=== PATIENT | male | born 1940 | race Caucasian/White ===

== ENCOUNTER 2017-10-09 09:20 | Inpatient (IN) ==
[2017-10-09] MEDS ORDERED: ASPIRIN 81 MG CHEWABLE TABLET PO ONE (09:34)
[2017-10-09] MEDS ORDERED: SALINE FLUSH 10ml SYRINGE IVF PRN (09:34)
[2017-10-09] MEDS ORDERED: NITROGLYCERIN 0.4 MG SUBLINGUAL TABLET SL PRN (09:34)
--- NOTE | 2017-10-09 11:23 | XRay Report ---
INDICATION: dyspnea PROCEDURE: CHEST 2-VIEWS UPRIGHT (PA & LAT) Encounter: Initial COMPARISON: Renal CT dated October 09, 2006 FINDINGS: There are some linear markings seen in the posterior lower lobes on the lateral view. Upper lung hercules are clear. There is no pleural effusion or pneumothorax. The cardiac silhouette is mildly enlarged. The mediastinal contours and pulmonary vascularity are within normal limits. DISH and mild degenerative change in the thoracic spine. IMPRESSION: Linear lower lobe markings could represent atelectasis, scarring or early infiltrate. Mild enlargement of the cardiac silhouette could be due to cardiomegaly or pericardial effusion. .
[2017-10-09] MEDS ORDERED: SALINE FLUSH 10ml SYRINGE ONE ×2 (11:34→15:14)
[2017-10-09] MEDS ORDERED: IOHEXOL 350mg/ml 75ml INJECTION ONE (11:34)
--- NOTE | 2017-10-09 12:21 | CT Scan Report ---
Indication: dyspnea PROCEDURE: CT angio pulm emboli: Encounter: Initial Comparison: Chest x-ray from today Technique: Axial CT pulmonary angiographic phase images were performed through the chest after the administration of intravenous contrast. Coronal and Sagittal MIP reconstructed images were created and reviewed. Automated Exposure Control and Iterative Reconstruction dose reducing techniques were utilized. Contrast: Omnipaque 350 74 mL Findings: Pulmonary arteries: Exam is diagnostic to the subsegmental pulmonary arterial level. No filling defects identified to suggest a pulmonary embolus. Other findings: Linear areas of scarring in the lower lobes with right-sided pleural thickening. No acute consolidative pneumonia. No pneumothorax or pleural effusion. The central airways are patent. No axillary or mediastinal adenopathy. Heart is mildly enlarged without pericardial effusion. The upper abdomen shows granulomatous disease in the spleen. The gallbladder is markedly distended with wall thickening and surrounding inflammation, incompletely evaluated on this exam. Impression: 1. No pulmonary embolus. No pneumonia or pericardial effusion. 2. Probable acute cholecystitis. Recommend gallbladder ultrasound for further evaluation. .
--- NOTE | 2017-10-09 12:50 | Emergency Department Report ---
General Adult HPI - General Chief complaint: Chest Pain Stated complaint: CP, stragulated hernia Time Seen by Provider: 10/09/17 09:35 - History of Present Illness HPI narrative: 76-year-old gentleman presents to ED with shortness of breath and abdominal distention. He initially was trying to track down the general surgeon to have a hernia repair, but was referred to the emergency department for evaluation when he reported to the desk that he felt short of breath. He has noticed some increasing shortness of breath over the last few months. However his main complaint today is that his abdomen feels full he feels like he's not had a bowel movement for at least 5 days and his left sided inguinal hernia is "may be incarcerated". He's had no fever has had some slight chills last 2 days. Increasing nausea with vomiting times one. He said it is rare, maybe vomited 3 times in his entire life. He has been taking laxatives the last 2-3 days, has not noticed any success. No chest pain. He has not seen a physician in 7-10 years. In fact the last time he saw , it was Dr. Kumar to have a hernia repair. - Related Data Home Medications Medication Instructions Recorded Confirmed No known Home medications [No home 10/09/17 10/09/17 meds] Allergies Allergy/AdvReac Type Severity Reaction Status Date / Time NKDA Allergy Unknown Uncoded 05/19/10 15:15 Review of Systems All systems: reviewed and negative except as stated PFSH Patient Stated Medical History Angina Yes Asthma Yes Other Respiratory Yes: CHRONIC COUGH Other Hematologic Yes: EASY BRUISING - Social History Smoking status: Never smoker Physical Exam - Limitations Limitations: no limitations - General General appearance: alert - Normal Exams: Head:: Normocephalic without trauma Chest/Respirations:: Clear all hercules, with good airflow, and symmetry bilaterally Cardiovascular:: Regular rate and rhythm, without murmur or gallop, Pulses 2+ all extremities, capillary refill, <2 seconds all extremities Abdomen:: Bowel sounds positive Neurological:: Patient is alert, and oriented, cranial nerves, motor/sensory/ cerebellar, exams w/o gross deficits, to observation Psychiatric:: Patient exhibits, appropriate attention, emotion and affect - Abdominal Exam Abdominal exam: Present: distention, tenderness (right upper quadrant), normal bowel sounds. Absent: guarding, rebound, rigidity Course Vital Signs Temperature 98.7 F 10/09/17 09:22 Pulse Rate 94 10/09/17 09:22 Respiratory Rate 24 10/09/17 09:22 Blood Pressure 117/56 10/09/17 09:22 Pulse Oximetry 97 10/09/17 09:22 Temperature 98.7 F 10/09/17 09:22 Pulse Rate 94 10/09/17 09:22 Respiratory Rate 24 10/09/17 09:22 Blood Pressure 117/56 10/09/17 09:22 Pulse Oximetry 97 10/09/17 09:22 Medical Decision Making - MDM Narrative Medical decision making narrative: Patient was initially evaluated as a possible preop for hernia repair. However due to the shortness of breath, he was Worked up as possible chest pain. Cardiac labs, chest x-ray ordered as well as aspirin and nitroglycerin. Troponin was negative but patient did have elevated white count with left shift. Questionable pericardial effusion or cardiac enlargement on chest x-ray. CT angiogram was obtained to rule out the possibility of pneumonia or pericardial effusion and likely acute cholecystitis was noted incidentally on the CT scan. This certainly fit with the patient's symptoms and complaints. Therefore liver enzymes, lipase and limited abdominal ultrasound are ordered. Enlarged gallbladder with.periCholecystic fluid noted and gallstones seen. Invanz 1 g IV ordered along with 500 ML normal saline bolus. Patient will be admitted via surgery. - Differential Diagnosis pericardial effusion, pneumonia, inguinal hernia, cholecystitis - Lab Data Result diagrams: 10/09/17 09:39 10/09/17 09:39 Lab Results 10/09/17 10/09/17 Range/Units 09:39 09:39 WBC 19.7 H (4.5-11.0) T/MM3 RBC 4.04 L (4.50-5.90) M/MM3 Hgb 13.3 L (13.5-17.5) GM/DL Hct 38.8 L (41-53) % MCV 96.0 (80-100) UM3 MCH 32.9 (26-34) UUG MCHC 34.3 (31-37) GM/DL RDW Std Deviation 44.0 (36.9-50.2) FL Plt Count 318 (130-400) T/MM3 MPV 9.9 (9.4-12.4) UM3 Immature Gran % (Auto) Not performed Neut % (Auto) Not performed Lymph % (Auto) Not performed [place] % (Auto) Not performed Eos % (Auto) Not performed Baso % (Auto) Not performed Neut # (Auto) Not performed Lymph # (Auto) Not performed [place] # (Auto) Not performed Eos # (Auto) Not performed Baso # (Auto) Not performed Abs Immat Gran (auto) Not performed Neutrophils % (Manual) 87.0 H (33-66) % Band Neutrophils % 2.0 (0-6) % Lymphocytes % (Manual) 6.0 L (23-45) % Monocytes % (Manual) 2.0 (0-9.0) % Metamyelocytes % 3.0 H (0-0) % Neutrophils # (Manual) 17.1 H (1.8-7.7) T/MM3 Band Neutrophils # 0.4 T/MM3 Lymphocytes # (Manual) 1.2 (1-4.8) T/MM3 Monocytes # (Manual) 0.4 (0-0.8) T/MM3 Metamyelocytes # 0.6 T/MM3 RBC Morph Comment Normal Turbidity < 20 (0-20) Sodium 140 (134-144) MEQ/L Potassium 3.9 (3.6-5) MEQ/L Chloride 104 (98-107) MEQ/L Carbon Dioxide 21 L (22-30) MEQ/L Anion Gap 15 (5-15) meq/L BUN 14.0 (9-20) MG/DL Creatinine 0.8 (0.8-1.5) mg/dL GFR Calculation 94 BUN/Creatinine Ratio 18 (6-26) RATIO Glucose 144 H (75-110) MG/DL Calculated Osmolality 273 (261-280) MOSM/KG Calcium 9.7 (8.4-10.2) MG/DL Icterus Index < 2 (0-7) Troponin I < 0.012 (0-0.12) ng/ml NT-Pro-B Natriuret Pep 1950 H (0-175) pg/mL Specimen Hemolysis 17 (0-25) - Radiology Data Radiology results reviewed: Yes: I reviewed the patient's radiology results. - EKG Data EKG #1 EKG attestation: Yes: I reviewed and interpreted this EKG. EKG results narrative: 99 bpm EKG shows normal: sinus rhythm Rhythm: PVC's Interpretation: nonspecific ST-T wave changes Disposition Clinical Impression: Acute cholecystitis Disposition: 02 To OBS [facility] Prescriptions: No Action No known Home medications [No home meds] 0 #0 misc Referrals: Jerel Hernández DO [Primary Care Provider] - Time of Disposition: 12:56 - Seen By: physician
[2017-10-09] MEDS ORDERED: ERTAPENEM 1 G in NS 100 ML IV ONE (12:57)
--- NOTE | 2017-10-09 13:12 | Ultrasound Report ---
Indication: abd pain PROCEDURE: US abdomen limited: Encounter: Initial Comparison: CTA chest from today Technique: Grayscale and color Doppler sonographic imaging of the right upper quadrant of the abdomen was performed. Findings: Hepatic parenchyma is echogenic and sonographically dense without evidence for focal mass. The gallbladder is distended with a 1.9 cm gallstone fixed in the neck. Additional smaller stones also present. There is gallbladder wall edema and thickening up to 7 mm in thickness. Sonographic Roche's sign was reportedly positive. No intrahepatic bile duct dilatation. The common duct was unable to be visualized. Pancreas is not seen. The right kidney is present without collecting system dilatation. The right kidney measures 13.2 cm in length. Impression: 1. Acute cholecystitis. Surgical consultation is recommended. 2. Hepatic steatosis. .
[2017-10-09] MEDS: NS 1,000 ML IV SCH ×2 (13:14→17:24)
--- NOTE | 2017-10-09 13:24 | General Surg History&Physical ---
[facility] Patient Stated Medical History Angina Yes Asthma Yes Other Respiratory Yes: CHRONIC COUGH Other Hematologic Yes: EASY BRUISING Obesity Melanoma 2018 Surgical History: Left inguinal hernia repair 2011 José Family History: Father - cancer "in the neck" Mother - Lymphoma Brother - Prostate and kidney cancer - Social History Smoking status: Never smoker Current occupational status: retired Previous occupational history: Office supply sales Current residence: Apartment/Private Home Social history: PCP Dr. Hernández, but has not seen him for many years. Medications Home Medications Medication Instructions Recorded Confirmed Type No known Home medications [No home 10/09/17 10/09/17 History meds] Allergies Allergy/AdvReac Type Severity Reaction Status Date / Time NKDA Allergy Unknown Uncoded 05/19/10 15:15 Review of Systems 10-point ROS: negative except for HPI and the following: - General General: Present: fever, chills, other (fatigue) - Eyes/Ears/Nose/Throat Ear Nose Throat: Present: hearing problems - Cardiovascular Cardiovascular: Present: chest pain (angina) - Respiratory Respiratory: Present: wheezing, cough - Gastrointestinal Gastrointestinal: Present: constipation - Musculoskeletal Musculoskeletal: Present: back pain, joint pain - Neurological Neurological: Present: muscle weakness - Hematologic/Lymphatic Hematologic/Lymphatic: Present: easy bruising - Vital Signs Last Vital Signs Temp 98.7 F 10/09/17 09:22 Pulse 94 10/09/17 09:22 Resp 24 10/09/17 09:22 BP 117/56 10/09/17 09:22 Pulse Ox 97 10/09/17 09:22 - Laboratory Result Diagrams: 10/09/17 09:39 10/09/17 09:39 General Surgery Results - Results Labs: 10/09/17 09:39 10/09/17 09:39 Hospital Course Summary Disclaimer: The visit summary below is not to be considered part of the above Progress Note.
[2017-10-09 13:44] VITALS: BMI 48.8
[2017-10-09] MEDS ORDERED: SALINE FLUSH 10ml SYRINGE IV PRN (14:06)
[2017-10-09] MEDS ORDERED: LIDOCAINE 1% (10mg/ml) 2mL INJ PF SDV ID ONE (14:06)
[2017-10-09] MEDS ORDERED: MORPHINE SULFATE 10mg/ml VIAL IVP PRN (14:06)
[2017-10-09] MEDS ORDERED: ONDANSETRON 4 MG/2 ML INJECTION IVP PRN ×2 (14:06→19:45)
--- NOTE | 2017-10-09 15:06 | Anesthesia Preoperative Report ---
Anesthesia Preoperative Record - Date and Time Date: 10/09/17 Preoperative Diagnosis: acute cholecystitis Proposed Procedure: Robotic Choleycystectomy NPO Since Date: 10/07/17 NPO Since Time: 20:00 Allergies/Adverse Reactions: Allergies Allergy/AdvReac Type Severity Reaction Status Date / Time NKDA Allergy Unknown Uncoded 10/09/17 13:47 - Vital Signs Vital Signs: Temperature 97.0 F 10/09/17 13:48 Pulse Rate 83 10/09/17 13:48 Respiratory Rate 20 10/09/17 13:48 Blood Pressure 138/65 10/09/17 13:48 Pulse Oximetry 97 10/09/17 13:48 Height and Weight: Height 5 ft 11 in Weight 158.8 kg Body Mass Index 48.8 - Medications Inpatient Medications: Current Medications Sodium Chloride (Normal Saline) 1,000 mls @ 125 mls/hr IV .Q8H SYLVIA Last Infusion: 10/09/17 13:22 Dose: 0 mls/hr Morphine Sulfate (Morphine Sulfate Vial) 1 - 4 mg IVP Q2H PRN PRN Reason: Pain Ondansetron HCl (Zofran) 4 mg IVP Q6H PRN PRN Reason: Nausea Sodium Chloride (Iv Flush) 10 ml IV PRN PRN PRN Reason: Flushing Home Medications: Home Medications Medication Instructions Recorded Confirmed Type No known Home medications [No home 10/09/17 10/09/17 History meds] Is Patient on Beta Sukhdev?: No - Medical History Respiratory: Reports: Asthma, Dyspnea, Sleep Apnea, Other (CHRONIC COUGH) DENIES: Bronchitis, Chronic Obstructive Pulmonary Disease (COPD), Orthopnea, Pulmonary Embolism, Pneumonia, Upper Respiratory Infection, Pulmonary Edema, Tuberculosis Cardiovascular: Reports: Angina DENIES: Abnormal EKG, Arrhythmia, Congestive Heart Failure, Coronary Artery Disease, Heart Murmur, Hypertension, Hypotension, High Cholesterol, Myocardial Infarction, Rheumatic Fever, Valvular Heart Disease, Other Gastrointestional: Reports: Gastroesophageal Reflux Disease, Morbid Obesity DENIES: Obstructive Bowel, Hepatitis, Cirrhosis, Nausea or Vomiting Present, Gastrointestinal Bleeding, Hiatal Hernia, Ulcer, Other Neuro/Musculoskeletal: Reports: Back Problems (LOWER BACK), Muscle Weakness Denies: Cerebrovascular Accident, Depression, Headaches, Loss of Consciousness, Neuromuscular Disorder, Paralysis, Paresthesia, Syncope, Seizures , Other Renal/Endocrine: DENIES: Diabetes Mellitus Type 1, Diabetes Mellitus Type 2, Renal Failure, Dialysis, Thyroid Disease, Weight Loss, Weight Gain, Other Other History: Reports: Cancer (MELANOMA REMOVED FROM LEFT EAR) - Surgical History Respiratory Surgery/Treatments: Reports: CPAP Use GI Surgery/Treatments: Reports: Hernia Repair Anesthesia Reactions: None Hx Family Anesthesia Reaction: No History of Motion Sickness: No - Social History Smoking Status: Never smoker Hx Chewing Tobacco Use: No Second Hand Exposure: No Substance Use Type: does not use Alcohol Intake Frequency: does not drink - Pertinent Findings EKG Ectopy: Bundle Branch Block - Physical Exam Respiratory Exam: Present: lungs clear, bilateral breath sounds equal Cardiovascular Exam: Present: regular rate and rhythm, no murmur - Airway Assessment Mallampati Score: II TMD: 3 Fingerbreadths Neck Extension: good Overall Assessment: may be difficult mask vent, may be difficult intubation - ASA ASA Score: 3 - Plan Anesthesia: General Inhalation Gases - Discussion Discussion: Discussed risks/options/alternatives of anesthesia and questions answered. Patient consents. Nursing pain assessment noted. Attestation Statement: Prior to the delivery of any anesthetic medication, I examined the patient, developed the plan, obtained the patient's consent and discussed the risk and benefits of the procedure with the patient/guardian.
[2017-10-09] MEDS ORDERED: INDOCYANINE GREEN 25mg INJECTION ONE (15:14)
[2017-10-09] MEDS ORDERED: ROCURONIUM 50 MG/5 ML INJECTION IVP ONE ×2 (16:02→17:54)
[2017-10-09] MEDS ORDERED: PROPOFOL 20 ML ONE (16:02)
[2017-10-09] MEDS ORDERED: SUCCINYLCHOLINE 20mg/mL 10mL INJECTION ONE (16:02)
[2017-10-09] MEDS ORDERED: SALINE FLUSH 10ml SYRINGE IV ONE (16:13)
[2017-10-09] MEDS ORDERED: BUPIVACAINE 0.25%/EPI 1:200,000 30ml SDV ID ONE (16:13)
[2017-10-09] MEDS ORDERED: INDOCYANINE GREEN 25mg INJECTION IVP PRN (16:13)
[2017-10-09] MEDS ORDERED: FentaNYL 250 MCG/5 ML INJECTION ONE (16:15)
[2017-10-09] MEDS ORDERED: BUPIVACAINE 0.25%/EPI 1:200,000 30ml SDV ONE (16:18)
[2017-10-09] MEDS ORDERED: LIDOCAINE VISCOUS 2% ORAL LIQUID 15ml ONE (16:44)
[2017-10-09] MEDS ORDERED: LIDOCAINE 2% (100mg/5ml) SYRINGE (PF) IVP ONE (16:45)
[2017-10-09] MEDS ORDERED: SUGAMMADEX 200mg/2ml INJECTION IVP ONE (19:12)
[2017-10-09] MEDS ORDERED: HYDROMORPHONE 2 MG/ML INJECTION IVP PRN (19:45)
--- NOTE | 2017-10-09 19:47 | General Surgery Procedure Note ---
Date of Procedure: 10/09/17 Surgeon: José Instrument Setter: Joseph Schaffer APRN Postoperative Diagnosis: Acute gangrenous cholecystitis cholelithiasis cholelithiasis Procedure: Robotic assisted laparoscopic cholecystectomy with Firefly imaging. Estimated Blood Loss: See Anesthesia Record.
--- NOTE | 2017-10-09 19:56 | Anesthesia Postoperative Note ---
- Date and Time Date: 10/09/17 Time: 19:55 - Status Patient Participated in Evaluation: Patient Participated in Person Vital Signs: Temperature 98.4 F 10/09/17 19:36 Pulse Rate 104 H 10/09/17 19:40 Respiratory Rate 34 H 10/09/17 19:40 Blood Pressure 130/67 10/09/17 19:40 Pulse Oximetry 94 10/09/17 19:40 Respiratory Function: Airway Patent (Bipap ), Regular Respirations Cardiovascular Function: Regular Pulse EKG: Sinus Rhythm Mental Status: Alert and Oriented Pain Intensity: 0 Hydration: IV Infusing Complications During Recover: None Apparent - Follow-Up Instructions Instructions: Per Surgeon
[2017-10-09] MEDS ORDERED: NS 1,000 ML IV SCH (20:26)
[2017-10-09] MEDS ORDERED: NALOXONE 0.4 MG/ML INJECTION IVP PRN (20:26)
[2017-10-09] MEDS ORDERED: METOCLOPRAMIDE 10mg/2ml INJECTION IVP PRN (20:26)
[2017-10-09] MEDS ORDERED: HYDROCODONE/APAP 5mg/325mg TABLET PO PRN (20:26)
[2017-10-09] MEDS: KETOROLAC 15 MG/ML INJECTION IVP PRN (20:33)
--- NOTE | 2017-10-09 20:50 | History and Physical ---
DATE OF SERVICE 10/09/2017 FINDINGS Mr. Sequeira is a 76-year-old gentleman whom I was asked to see earlier today through the emergency room. Upon questioning Mr. Sequeira, he states over the last five to six days he has "not been feeling well." Patient states that he has noted that there was a "lump" within his left groin for a number of years. He states he has been having some "problems with his bowels." Patient also stated that he has put on a significant amount of weight over the last couple of years and has chronic problems with shortness of breath. He has not seen a physician for about the last seven years. The patient also states that his "left kidney seems to hurt" although this is also a chronic issue for him. The patient was somewhat vague about his symptoms but did state that he has noted increasing pain within his epigastric region and right upper quadrant over the last several days. Patient states that he did have episode of vomiting which is quite unusual for him. The patient also states that he has noted that it has been about four or five days since he has had a bowel movement. As a result of this increasing pain and not feeling well he presented initially to my surgical practice and was "looking for me." The patient was seen by my nurse practitioner and with his complaints he was subsequently sent to the emergency room for further evaluation. PAST MEDICAL HISTORY, PAST SURGICAL HISTORY, MEDICATIONS, ALLERGIES, SOCIAL HISTORY, FAMILY HISTORY, REVIEW OF SYSTEMS Performed by my nurse practitioner, Joseph Schaffer APRN. PHYSICAL EXAMINATION GENERAL: Mr. Sequeira is a 76-year-old gentleman who did appear uncomfortable when seen earlier today in the emergency room. VITAL SIGNS: Temperature 97.9, pulse 92, respirations 20, blood pressure 92/48. HEENT: Normocephalic. Pupils are equally round and react to light and accommodation. CHEST: Clear to auscultation bilaterally. HEART: Regular rate and rhythm. Normal S1 and S2 without gallops, murmurs or clicks. ABDOMEN: Visualization of the abdomen did reveal it to be fairly protuberant in nature. Palpation of the abdomen did indeed reveal localized tenderness to his right upper quadrant. Patient did have a positive Roche sign. The patient also had some tenderness within the epigastric region but the site of maximum tenderness was indeed within the right subcostal location. He did have a component of voluntary guarding with deep palpation. There was no evidence for involuntary guarding, however, or rebound tenderness. Left lower quadrant, right lower quadrant and left upper quadrant were for the most part nontender upon palpation. Additionally, focused attention to the left inguinal region revealed a left inguinal hernia. The patient was found to have a 10-12 cm mass in the left inguinal region that appeared to contain bowel. This was soft and partially reducible in upon palpation. There was no severe tenderness noted within the left inguinal region upon palpation. EXTREMITIES: Without clubbing, cyanosis, or edema. NEURO: Cranial nerves II-XII grossly intact. Patient is without focal motor or sensory deficits. LABORATORY/RADIOGRAPHIC EVALUATION The patient had a CBC obtained that did reveal increased localized leukocytosis with a white count of 19,000. Hemoglobin is 13.3. Did have a slight left shift with 87% neutrophils. CMP was obtained and his total bilirubin was slightly elevated at 1.8 although his unconjugated was 1.2. Lipase was normal at 18. AST, ALT, alkaline phosphatase were within normal limits. Patient had undergone multiple testing through the emergency room, given his somewhat vague presentation. Chest x-ray was obtained that did not reveal any acute pathology. He did have a CTA of his chest to rule out a pulmonary embolism given his somewhat complaint of some shortness of breath. This did not reveal any evidence for pulmonary emboli but did reveal evidence for acute cholecystitis. The patient subsequently underwent a gallbladder ultrasound for further evaluation and he was found to have a 1.9-cm fixed stone within the neck of the gallbladder. There was a component pericholecystic fluid/edema. Gallbladder wall was thickened in nature. He was found have a positive Roche sign during the process of his ultrasound. I was present with the field map technician while he was performing the ultrasound. ASSESSMENT 76-year-old obese gentleman with acute cholecystitis. PLAN Robotic-assisted laparoscopic cholecystectomy. Given his physical findings and radiographic findings as well as his laboratory results all indicative for acute cholecystitis it was my recommendation to Mr. Sequeira that he should undergo surgical intervention. I did discuss in detail with him what a robotic- assisted laparoscopic cholecystectomy would entail and its associated risks which included but were not inclusive of bleeding, infection, potential conversion to an open procedure, as well as potential injury to adjacent structures especially the common bile duct. Additionally, it was my recommendation that we give the patient while in the emergency room broad- spectrum antibiotics. After informed consent the patient understood and wished to proceed with surgical intervention as stated above. MEGA
--- NOTE | 2017-10-09 21:22 | Consult Note ---
Consult Information - Data of Consult Consult date: 10/09/17 Requesting Physician: Jerrell Kumar MD Primary Care Provider: Jerel Hernández DO - Consult Narrative Reason for consult: Medical Management - in ICU History of present illness: Mr. Sequeira is a 76 y/o w/ reported h/o MARIO on CPAP, hernia repair in 2010, Asthma , GERD, chronic back pain and infrequent visits to his PCP who presented today w / vague complaints but did note acute epigastric and RUQ abdominal pain with episode of n/v and noted to have elevated Tbil of 1.8 and WBC of 19.7. Patient also in ER had a Chest x-ray was obtained that did not reveal any acute process and a CTA of his chest negative for PE but did show concern for acute cholecystitis. The patient subsequently underwent a gallbladder ultrasound for further evaluation and he was found to have a 1.9-cm fixed stone within the neck of the gallbladder. There was a component pericholecystic fluid/edema. Gallbladder wall was thickened in nature. He was found have a positive Roche sign during the process of his ultrasound. Patient was seen and evaluated by Dr. Kumar and was taken to OR and had lap cholecystectomy and had some respiratory issues post-op and frequent PVCs and is now in CCU on BIPAP. Cardiology is also going to be consulted as well. Hospitalist service will follow along and manage patient's medical issues At the time I visited with the patient he is feeling better, denies dyspnea and SOA at this time and is currently off BIPAP and on 5 L/min O2 per NC. He states he has no acute complaints. Past Medical History Medical History Updates: GERD, Asthma, chronic back pain, melanoma left ear s/p excision, hernia repair in 2010, h/o Angina? and MARIO on CPAP. Not a smoker. Surgical History: Left inguinal hernia repair 2010 [facility] Family History: No Significant Family History - Social History Smoking status: Never smoker Does patient use chewing tobacco?: No Review of Systems All systems PM: 10-point ROS was reviewed, no additional remarkable complaints except Review of systems: Patient states over past several years has had significant weight gain and rarely sees his PCP - last time was 6-7 years ago. Also recently has c/o some mild SOA w/ exertion and also constipation. Medications Home Medications Medication Instructions Recorded Confirmed Type Aspirin 2 tab PO PRN PRN 05/22/18 05/22/18 History Cetirizine HCl [Zyrtec] 1 tab PO DAILY 10/09/17 10/09/17 History Allergies Allergy/AdvReac Type Severity Reaction Status Date / Time NKDA Allergy Unknown Uncoded 10/09/17 15:42 Exam Vital Signs: Temperature 98.2 F 10/09/17 20:53 Pulse Rate 100 10/09/17 20:53 Respiratory Rate 28 H 10/09/17 20:53 Blood Pressure 105/50 10/09/17 20:53 Pulse Oximetry 96 10/09/17 20:53 Telemetry Rhythm: Sinus Rhythm Telemetry Ectopy: Occasional PVC - Constitutional Present: no acute distress, well nourished, well developed, cooperative - Routine HEENT Exam Head: Present: normocephalic, atraumatic Eye: Present: EOMI, PERRL ENT: Present: mucous membranes dry - Routine Neck Exam Present: supple, full ROM. Absent: JVD - Routine Respiratory Exam Present: decreased breath sounds. Absent: accessory muscle use, dyspnea, rhonchi, stridor, wheezes - Routine Cardiovascular Exam Present: RRR, S1, S2 - Routine Abdominal Exam Comments: + bowel sounds; mild ttp but otherwise relatively soft; protuberant; - Routine Extremities Exam Absent: cyanosis, clubbing, edema - Routine Skin Exam Present: intact, dry. Absent: cyanosis - Routine Neurological Exam Present: alert, oriented X3, CN II-XII intact. Absent: sensory deficit, motor deficit - Routine Psychiatric Exam Present: normal affect, normal thought process, cooperative Results - Labs CBC & Chem 7: 10/10/17 02:41 10/10/17 02:41 Assessment and Plan Assessment and Plan: Assessment 1) Acute cholecystitis s/p Cholecystectomy 2) Acute Hypoxic Respiratory Failure in ICU on BIPAP 3) Acute Sepsis 4) MARIO normally in CPAP at home 5) GERD 6) Telemetry showing frequent PVCs 7) Chronic back pain PLan: Appreciate consult and opportunity to care for Mr Sequeira Telemetry Serial troponins Cardiology consult - given 12.5mg po Metoprolol x one BIPAP - wean as tolerated to NC RT consult w/ nebs q 4 hours prn and ISP as tolerated IVFs that of NS at 125 cc / hour Labs in AM Protonix 40mg daily - start IV and move to po Vancomycin 1g IV x one, then reassess tomorrow for continued need Order lactate tonight and in AM Will monitor Is/Os Will continue to follow and manage medical issues. DVT Prophylaxis: SCD's GI Prophylaxis: Protonix Resuscitation Status: Full Code - Physician Narrative Physician: Elsa Roger MD Narrative: Date: 10/10/17 Time: 9 AM-Dr. Roger I seen and examined the patient. I have reviewed the H&P above and agree. Please see my additions below. Chief complaint: Medical management and ICU postoperatively History of present illness: The patient is very pleasant 76-year-old male who was found to have acute cholecystitis and underwent laparoscopic cholecystectomy yesterday. Surgery was somewhat difficult and 5 ports were used. He had been feeling poorly for almost a week with right upper quadrant pain and pain in the right lower chest. For 2 days he was having fevers, chills , sweats and some confusion. He has obstructive sleep apnea and uses CPAP at night. He does not use supplemental oxygen. We were consulted last evening for respiratory failure. The patient did need intermittent BiPAP/CPAP. He was up to 5 L per nasal cannula but currently is on 2 L. He states that this morning he feels much better. He has no abdominal pain unless he moves. He denies any chest pain. He states that prior to the past week he did not have any difficulties with chest pain. When he was having this epigastric/right upper quadrant/right sided chest pain this past week there was no radiation of pain to the upper chest, neck or arms. He has some chronic dyspnea on exertion but this was not any worse this past week. He was noticed to have frequent PVCs on telemetry. He does not notice any palpitations or heart racing. He denies any nausea or vomiting today. He has not had any flatus since surgery. He has not had a bowel movement for about 5 days and does feel constipated. Past medical history: GERD, asthma, occasional low back pain, knee pain, history of melanoma the left ear status post excision, left inguinal hernia [place] [address] Kumar, obstructive sleep apnea on CPAP, prostate procedure 10-12 years ago. He denies any hospitalizations in the past. Social history: He formerly smoked a pipe but quit 25 years ago. He denies alcohol use. He is and lives alone. He is retired. Family history significant for multiple family members with cancer. His mother of lymphoma at age 63. His dad had a tumor on his jaw that was treated successfully and his dad at age 90 of old age. He has a brother who had prostate cancer and kidney cancer. Multiple family members on his mother's side have of cancer. Comprehensive review of systems is negative other than the above in history of present illness Physical exam Afebrile, heart rate 84, blood pressure 117/64, O2 sat 93% on 2 L, respirations 23 General this is well-developed, overweight, pleasant male in no acute distress. HEENT reveals sclerae to be anicteric and pupils are equal. Oropharynx is moist. Neck supple. Chest is clear to auscultation anteriorly. Cardio vascular reveals a regular rate and rhythm with an occasional PVC. Abdomen is obese, soft, hypoactive bowel sounds. Mild tenderness. Overall he states his tenderness is markedly improved compared to yesterday. Extremities reveal trace edema. SCDs are on. Skin is warm and dry and without rashes. Pertinent labs reveals white count to be 18.4 down from 19.7. Neutrophils 85%, bands 2%. Hemoglobin A1c 5.6 Total bilirubin today is 1.9 up from 1.8 yesterday. Other liver enzymes are essentially normal. Lactate was normal 2. Troponin was normal 3. Impression Acute cholecystitis status post laparoscopic cholecystectomy Acute hypoxic respiratory failure History of obstructive sleep apnea which he uses CPAP Leukocytosis Frequent PVCs Right lower anterior chest pain was likely related to his acute cholecystitis and has resolved Low back pain Bilateral knee pain Constipation Plan Overall, the patient appears to be doing well post laparoscopic cholecystectomy. Continue on telemetry. Check magnesium regarding frequent PVCs. Consider echocardiogram. The patient is on ertapenem for acute cholecystitis. He was given vancomycin 1. At this time, I do not think this needs to be continued. Blood cultures have been drawn and are pending. Continue CPAP/BiPAP at night. Wean off oxygen as tolerated. Incentive spirometry. Recommend the patient establish with primary care after dismissal. Hospital Course Summary Disclaimer: The visit summary below is not to be considered part of the above Progress Note.
[2017-10-10] MEDS: NS 1,000 ML IV SCH ×3 (01:51→18:05)
[2017-10-10] MEDS ORDERED: Bisacodyl EC TAB 5 MG TABLET PO ONE (07:51)
--- NOTE | 2017-10-10 07:54 | General Surgery Progress Note ---
Subjective Narrative: Slept between cares during the night. States having right and left mid abd pain with activity. He is reluctant to get up or turn/reposition. Denies chest pain this morning. He was on B-Pap all night. States no BM for 5 days and not passing flatus. Hospitalist and manager analytical have been consulted last evening. - Vital Signs Last Vital Signs Temp 98.2 F 10/09/17 20:53 Pulse 79 10/10/17 04:45 Resp 25 H 10/10/17 04:45 BP 113/68 10/10/17 04:45 Pulse Ox 94 10/10/17 04:45 - Laboratory Result Diagrams: 10/10/17 02:41 10/10/17 02:41 - Abnormal Exam Abdominal: obese, hypoactive bowel sounds Male: hernia (left inguinal) - Normal Exam General: awake, alert, oriented Cardiovascular: regular rhythm (currently), regular rate Respiratory: clear bilaterally, equal bilaterally Abdominal: soft, appropriately tender (trocar sites and right subcostal), incision(s) (DermaBond glue in tact, some early ecchymosis, no erythema), other (NINO with appropriate nearly clear serosangineous fluid, no indication of bile.) Psychiatric: normal affect (although states he does not want to call his daughter in [place] "untilmy hernia is fixed and I am out." She is an RN, he states "she worries.") Assessment and Plan (1) Cholelithiasis with acute cholecystitis Current Visit: Yes Status: Acute Qualifiers: Cholelithiasis location: gallbladder (2) Hyperbilirubinemia Current Visit: Yes Status: Acute (3) Morbid obesity with BMI of 45.0-49.9, adult Current Visit: Yes Status: Chronic (4) Hypoxia Current Visit: Yes Status: Acute (5) Acute onset sepsis Current Visit: Yes Status: Acute (6) Sleep apnea in adult Current Visit: Yes Status: Chronic (7) Frequent PVCs Current Visit: Yes Status: Acute Plan: WBC down just a little today to 18.4 from almost 20 yesterday. Troponin still <0.012 and he is in RSR now. Denies cheat pain. Bilirubin 1.9, up from 1.8 yesterday, but not uncommon for elevation after lap mars. He did have a very large stone plus multiple small stones. Sepsis, Invanz started in ED and 1 dose of Vacomycin given by hospitalist last night, he remains on Invanz daily. Nursing report foul urine, U/A ordered. No BM for 5 days, will start with Dulcolax PO to encourage bowels. Appreciate hospitalist for medical management and cardiology for cardiac care. This gentleman has not seen a physician for many years. Dr. Hernández was his last PCP seen, but pt did not know [facility] had moved to his "new" building. Will need to see if he wants to remain with [facility] with the new care model or choose a different PCP. Hospital Course Summary Disclaimer: The visit summary below is not to be considered part of the above Progress Note. Hospital Course: 10/10 POD #1 surgery note WBC down just a little today to 18.4 from almost 20 yesterday. Troponin still <0.012 and he is in RSR now. Denies cheat pain. Bilirubin 1.9, up from 1.8 yesterday, but not uncommon for elevation after lap mars. He did have a very large stone plus multiple small stones. Sepsis, Invanz started in ED and 1 dose of Vacomycin given by hospitalist last night, he remains on Invanz daily. Nursing report foul urine, U/A ordered. No BM for 5 days, will start with Dulcolax PO to encourage bowels. Appreciate hospitalist for medical management and cardiology for cardiac care. This gentleman has not seen a physician for many years. Dr. Hernández was his last PCP seen, but pt did not know [facility] had moved to his "new" building. Will need to see if he wants to remain with [facility] with the new care model or choose a different PCP.
[2017-10-10] MEDS: MORPHINE SULFATE 10mg/ml VIAL IVP PRN ×2 (08:19→11:54)
[2017-10-10] MEDS: ENOXAPARIN 40 MG/0.4 ML INJECTION SQ SCH (08:20)
[2017-10-10] MEDS: KETOROLAC 15 MG/ML INJECTION IVP PRN ×2 (08:20→13:51)
[2017-10-10] MEDS: PANTOPRAZOLE 40 MG INJECTION IVP SCH (08:20)
[2017-10-10] MEDS: CETIRIZINE 10 MG TABLET PO SCH (08:22)
--- NOTE | 2017-10-10 11:11 | Cardiology Consult Note ---
<Viktoria Bonilla - Last Filed: 10/10/17 14:31> History of Present Illness Consult date: 10/10/17 Requesting physician: Elsa Roger Chief complaint: abdominal pain History of present illness: Ed is a 76 year old with a reported history of MARIO on CPAP, hernia repair in 2010, Asthma, GERD, chronic back pain and infrequent visits to his PCP who presented with vague complaints but did note acute epigastric and RUQ abdominal pain with episode of n/v and noted to have elevated T melvina of 1.8 and WBC of 19.7. Chest x-ray was obtained that did not reveal any acute process and a CTA of his chest negative for PE but did show concern for acute cholecystitis. He subsequently underwent a gallbladder ultrasound for further evaluation and he was found to have a 1.9-cm fixed stone within the neck of the gallbladder. He was evaluated by Dr. Kumar and was taken to OR and had lap cholecystectomy, some respiratory issues post-op and frequent PVCs and is now in CCU. Dr. Perez is consulted for further evaluation and management of frequent PVCs. He is examined in the CCU. He is laying in bed, on room air in no distress. He denies chest pain, pressure, palpitations, skipping or racing heart beats. He denies dyspnea, dizziness, lightheadedness or nausea. Review of Systems - Constitutional Constitutional: Absent: chills, fatigue, fever(s), weakness - EENMT Eyes: Absent: change in vision Balance: Absent: vertigo Mouth/Throat: Absent: sore throat - Cardiovascular Cardiovascular: Present: edema. Absent: chest pain, palpitations, syncope, dyspnea on exertion, orthopnea, heart murmur - Respiratory Respiratory: Absent: cough, dyspnea, dyspnea on exertion - Gastrointestinal Gastrointestinal: Present: abdominal pain, nausea, vomiting. Absent: diarrhea - Genitourinary Genitourinary: Absent: dysuria - Integumentary/Breasts Integumentary: Absent: rash - Neurological Neurological: Absent: dizziness - Endocrine Endocrine: Absent: palpitations [facility] Medical History Updates: GERD, Asthma, chronic back pain, melanoma left ear s/p excision, hernia repair in 2010, h/o Angina? and MARIO on CPAP. Not a smoker. Surgical History: Left inguinal hernia repair 2010 [facility] Family History: mother - of lymphoma at age 63. Father - had a tumor on his jaw that was treated successfully and his dad at age 90 of old age. Brother - who had prostate cancer and kidney cancer. - Social History Smoking status: Never smoker second hand exposure: No Substance use type: does not use Alcohol intake frequency: does not drink Household members: none Current occupational status: retired Previous occupational history: Office supply sales Does patient use chewing tobacco?: No Current residence: Apartment/Private Home Medications Home Medications Medication Instructions Recorded Confirmed Type Aspirin 2 tab PO PRN PRN 10/09/17 10/09/17 History Cetirizine HCl [Zyrtec] 1 tab PO DAILY 10/09/17 10/09/17 History Amoxicillin/Potassium Clav 875 mg PO Q12HR #14 tab 10/11/17 Rx [Amox-Clav 875-125 mg Tablet] Hydrocodone/APAP 5/325 [Hudson 1 - 2 tab PO Q5H PRN #25 tab 10/11/17 Rx 5/325] PEG 3350 17gm PACKET [Miralax] 17 gm PO DAILY #10 packet 10/11/17 Rx Allergies Allergy/AdvReac Type Severity Reaction Status Date / Time No Known Drug Allergies Allergy Unknown Unverified 10/12/17 09:50 NKDA Allergy Unknown Uncoded 10/09/17 15:42 Exam Vital signs: Temperature 98.2 F 10/09/17 20:53 Pulse Rate 85 10/10/17 08:00 Respiratory Rate 25 H 10/10/17 08:19 Blood Pressure 113/68 10/10/17 04:45 Pulse Oximetry 94 10/10/17 04:45 - Constitutional no acute distress, morbidly obese, cooperative - Routine HEENT Exam Head: Present: normocephalic ENT: Present: mucous membranes moist - Routine Neck Exam Absent: JVD, carotid bruit - Routine Chest/Breast/Axilla Exam Chest wall: Absent: tenderness - Routine Respiratory Exam Present: CTA bilaterally. Absent: rales, wheezes - Routine Cardiovascular Exam Present: RRR, no murmur - Routine Abdominal Exam Present: soft, non tender - Routine Extremities Exam Present: no edema - Routine Skin Exam Present: intact, dry, warm - Routine Neurological Exam Present: alert, oriented X3 - Routine Psychiatric Exam Present: normal affect Results 10/10/17 02:41 10/10/17 02:41 Cardiac Enzymes 10/09/17 10/10/17 Range/Units 23:24 02:41 AST 48 D (17-59) U/L Troponin I < 0.012 < 0.012 (0-0.12) ng/ml CBC 10/10/17 Range/Units 02:41 WBC 18.4 H (4.5-11.0) T/MM3 RBC 3.85 L (4.50-5.90) M/MM3 Hgb 12.6 L (13.5-17.5) GM/DL Hct 37.4 L (41-53) % Plt Count 243 (130-400) T/MM3 Neut # (Auto) Not performed Lymph # (Auto) Not performed Sharp # (Auto) Not performed Eos # (Auto) Not performed Baso # (Auto) Not performed Comprehensive Metabolic Panel 10/10/17 Range/Units 02:41 Sodium 140 (134-144) MEQ/L Potassium 3.7 (3.6-5) MEQ/L Chloride 106 (98-107) MEQ/L Carbon Dioxide 23 (22-30) MEQ/L BUN 21.0 H D (9-20) MG/DL Creatinine 0.9 (0.8-1.5) mg/dL Glucose 134 H (75-110) MG/DL Calcium 8.5 D (8.4-10.2) MG/DL AST 48 D (17-59) U/L ALT 50 (1-50) U/L Alkaline Phosphatase 60 (38-126) U/L Total Protein 6.2 L (6.3-8.2) g/dL Albumin 3.4 L (3.5-5.0) g/dL Intake and Output 10/09/17 10/10/17 10/10/17 22:59 06:59 14:59 Intake Total 589.583 / 2322.916 687.5 / 687.5 1390.417 / 1390.417 Output Total 430 / 430 Balance 559.583 / 2292.916 257.5 / 257.5 1390.417 / 1390.417 Intake: IV 589.583 / 2322.916 687.5 / 687.5 910.417 / 910.417 Ns 1,000 ml @ 125 mls/hr IV . 589.583 / 2322.916 437.5 / 437.5 910.417 / 910.417 Q8H [facility] Rx#:[id number] Vancomycin 1,000 mg In NS 250ml 250 / 250 250 ml @ 250 mls/hr IV O ONE Rx#:[id number] Oral 480 / 480 Output: Urine 400 / 400 Wound Drainage 30 30 / 30 Right Abdomen 30 30 30 30 Other: Urine Appearance Clear Urine Color Tea Colored Urine Odor Foul Drain Type Right Abdomen Bulb Cedar Bulb Cedar # Incontinent Voids 1 Weight 352 lb 1.251 oz Patient Weight 10/11/17 06:59 Weight 352 lb 1.251 oz - Imaging and Cardiology Imaging & Cardiology Narrative: Date of Exam: 10/09/17 Ordering Provider: Les Heaton MD Type of Exam(s): XR chest 2V Reason for Exam(s): dyspnea INDICATION: dyspnea PROCEDURE: CHEST 2-VIEWS UPRIGHT (PA & LAT) Encounter: Initial COMPARISON: Renal CT dated October 09, 2006 FINDINGS: There are some linear markings seen in the posterior lower lobes on the lateral view. Upper lung hercules are clear. There is no pleural effusion or pneumothorax. The cardiac silhouette is mildly enlarged. The mediastinal contours and pulmonary vascularity are within normal limits. DISH and mild degenerative change in the thoracic spine. IMPRESSION: Linear lower lobe markings could represent atelectasis, scarring or early infiltrate. Mild enlargement of the cardiac silhouette could be due to cardiomegaly or pericardial effusion. 10/10/17 11:38 10/10/17 11:39 Date of Exam: 10/09/17 Ordering Provider: Les Heaton MD Type of Exam(s): CT angio pulm emboli Reason for Exam(s): dyspnea Indication: dyspnea PROCEDURE: CT angio pulm emboli: Encounter: Initial Comparison: Chest x-ray from today Technique: Axial CT pulmonary angiographic phase images were performed through the chest after the administration of intravenous contrast. Coronal and Sagittal MIP reconstructed images were created and reviewed. Automated Exposure Control and Iterative Reconstruction dose reducing techniques were utilized. Contrast: Omnipaque 350 74 mL Findings: Pulmonary arteries: Exam is diagnostic to the subsegmental pulmonary arterial level. No filling defects identified to suggest a pulmonary embolus. Other findings: Linear areas of scarring in the lower lobes with right-sided pleural thickening. No acute consolidative pneumonia. No pneumothorax or pleural effusion. The central airways are patent. No axillary or mediastinal adenopathy. Heart is mildly enlarged without pericardial effusion. The upper abdomen shows granulomatous disease in the spleen. The gallbladder is markedly distended with wall thickening and surrounding inflammation, incompletely evaluated on this exam. Impression: 1. No pulmonary embolus. No pneumonia or pericardial effusion. 2. Probable acute cholecystitis. Recommend gallbladder ultrasound for further evaluation. EKG interpretations - EKG EKG results cardiology: sinus rhythm - Dysrhythmias Ventricular dysrhythmias: ventricular premature complexes - Blocks, axis, hypertrophy, ST abn Repolarization changes or abnormalities: nonspecific abnormality, ST segment, and/or T wave Assessment and Plan - Assessment and Plan (1) Cholelithiasis with acute cholecystitis Status: Acute (2) Morbid obesity with BMI of 45.0-49.9, adult Status: Chronic (3) Sleep apnea in adult Status: Chronic (4) Frequent PVCs Status: Acute Ed denies symptoms - no PVCs seen on telemetry now - 2D echo pending - Will likely need OP Adenosine stress test and further evaluate for CAD - Assessment and Plan Ed denies symptoms - no PVCs seen on telemetry now - 2D echo pending - Will likely need OP Adenosine stress test and further evaluate for CAD Thank you for allowing us to participate in the care of this patient. Hospital Course Summary Disclaimer: The visit summary below is not to be considered part of the above Progress Note. Hospital Course: 10/10 POD #1 surgery note WBC down just a little today to 18.4 from almost 20 yesterday. Troponin still <0.012 and he is in RSR now. Denies cheat pain. Bilirubin 1.9, up from 1.8 yesterday, but not uncommon for elevation after lap mars. He did have a very large stone plus multiple small stones. Sepsis, Invanz started in ED and 1 dose of Vacomycin given by hospitalist last night, he remains on Invanz daily. Nursing report foul urine, U/A ordered. No BM for 5 days, will start with Dulcolax PO to encourage bowels. Appreciate hospitalist for medical management and cardiology for cardiac care. This gentleman has not seen a physician for many years. Dr. Hernández was his last PCP seen, but pt did not know [facility] had moved to his "new" building. Will need to see if he wants to remain with [facility] with the new care model or choose a different PCP. <Jasmeet Perez - Last Filed: 10/16/17 11:54> Exam Vital signs: Temperature 98.9 F 10/11/17 08:00 Pulse Rate 82 10/11/17 10:00 Respiratory Rate 25 H 10/11/17 10:00 Blood Pressure 140/74 H 10/11/17 10:00 Pulse Oximetry 96 10/11/17 10:28 Results 10/11/17 04:16 10/11/17 04:16 Assessment and Plan - Attestation Attestation Narrative: 10/16/17 11:54 Recommendation After examining the patient I agree with the above assessment. I am involved in the formulation of the patient's plan of care. - Assessment and Plan (1) Cholelithiasis with acute cholecystitis Status: Acute (2) Morbid obesity with BMI of 45.0-49.9, adult Status: Chronic (3) Sleep apnea in adult Status: Chronic (4) Frequent PVCs Status: Acute Hospital Course Summary Disclaimer: The visit summary below is not to be considered part of the above Progress Note.
[2017-10-10] MEDS: ERTAPENEM 1 G in NS 100 ML IV SCH (12:02)
--- NOTE | 2017-10-10 13:38 | Progress Note ---
DATE 10/10/2017 FINDINGS Mr. Sequeira was seen earlier this morning on rounds. He states that he was "feeling better". He was in the process of undergoing echocardiogram. OBJECTIVE VITALS: Afebrile. Normotensive. Please refer to EMR. ABDOMEN: Soft. Minimal incisional tenderness. No evidence for guarding or rebound. LABORATORY/RADIOGRAPHIC EVALUATION The patient had a CBC today and his white count remains elevated at 18,000. Hemoglobin is overall stable at 12.6. CMP was obtained and overall stable. Total bilirubin was slightly elevated from 1.8 to 1.9. Remaining LFTs were within normal limits. ASSESSMENT 76-year-old gentleman status post robotic assisted laparoscopic cholecystectomy secondary to acute/gangrenous cholecystitis. Overall patient doing well. PLAN I would recommend continuing with ongoing broad-spectrum intravenous antibiotics. The patient is on Invanz 1 g IV q.24h. Consult has been put forth from a medical standpoint. The patient is stable from a surgical standpoint. Will continue otherwise with current care. MEGA
--- NOTE | 2017-10-10 14:46 | Operative Note ---
DATE OF PROCEDURE 10/09/2017 SURGEON Jerrell Kumar MD LIQUOR ESTABLISHMENT MANAGER Joseph Schaffer APRN PREOPERATIVE DIAGNOSIS Acute cholecystitis. POSTOPERATIVE DIAGNOSIS Acute cholecystitis. PROCEDURE Robotic-assisted laparoscopic cholecystectomy with use of Firefly biliary imaging. ANESTHESIA General endotracheal EBL AND FLUIDS Please see chart. BRIEF HISTORY/INDICATIONS Mr. Sequeira is a 76-year-old gentleman who presented to our ER facility earlier today with some vague symptomatology. During the process of evaluation, radiographically he was found to have evidence for cholecystitis and a consult was put forth to me. Upon physical examination the patient was found to be exquisitely tender within his right upper quadrant. He did have a positive Roche's sign. His symptoms were somewhat unusual for a typical presentation of gallbladder disease. His CT scan as well as his gallbladder ultrasound revealed evidence for acute cholecystitis. As a result of the above indications , it was recommended to the patient that he undergo surgical intervention. For completeness please refer to notes in the patient's chart. FINDINGS Upon laparoscopy the patient had a fatty-appearing liver. There was a considerable amount of omentum as a result of his obesity which did limit visualization. The omentum, peritoneal surfaces, small bowel, colon which was visualized were within normal limits. Gallbladder itself was found to be quite abnormal. The infundibular portion of the gallbladder was covered with a white exudate-like material and showed evidence of early necrosis. The infundibulum of the gallbladder was quite erythematous in nature. There was a considerable amount of pericholecystic edema. Exposure was initially somewhat difficult but with careful meticulous dissection a robotic-assisted laparoscopic cholecystectomy was able be completed without incident. DESCRIPTION OF PROCEDURE After informed consent was obtained the patient was brought to the operative suite, placed on the table in a supine fashion. The abdomen was then prepped and draped in sterile fashion. Formal time-out was then completed. 0.25% Marcaine with epinephrine was injected just beneath the level of the umbilicus. A 2 cm curved incision was then made through the area of analgesia. Dissection was then carried down the deep subcuticular tissues to the underlying fascia. The fascia was then grasped with two Jayce clamps, retracted anteriorly. A 1 cm incision was then made between the two Jayce clamps. A hemostat was then introduced into the fascial incision and gently spread. A U-stitch was then placed with 0 Vicryl. A 12 mm port was then placed through the fascial opening into the peritoneal cavity. Pneumoperitoneum was established to a patient pressure of 15 mmHg utilizing carbon dioxide. Next, two 8 mm da Sugey ports were then placed within the left upper quadrant and right lower quadrant. Each port site was placed under direct visualization, preinjected with 0.25% Marcaine with epinephrine. Initially a 5-mm port was placed along the right lateral abdominal wall. The patient had a considerable amount of omentum and the omentum was grasped and retracted in a cephalad fashion. Initially the liver itself was not able to even be visualized nor the gallbladder as a result of the omentum covering the liver. The liver appeared to be consistent with that of a fatty liver. There were, however, no nodularities upon Wing's capsule. Next, the robot was then docked overlying the patient's right shoulder. The patient was placed in steep reverse Trendelenburg position and rotated towards his left. I then proceeded to the da Sugey console. I grasped the fundus of the gallbladder which was quite erythematous and edematous in nature. Gallbladder was then attempted to be advanced in a cephalad fashion. Given the enlargement of the liver and the firmness of the liver, the gallbladder was not able to be advanced as much as one typically can to provide exposure to the infundibulum of the gallbladder. Furthermore, there was a considerable amount of additional omentum given his obesity and the infundibulum of the gallbladder was not able to be exposed despite grasping on the lower portion of the gallbladder near the infundibulum and retracting it in an anterior fashion. Next, I proceeded back to the console. An additional 12 mm port was then placed within the left midabdomen. A fan retractor was then placed through this port to gently provide traction of the transverse colon and considerable omentum so that the infundibulum could be better visualized. The 5 mm port along the right lateral abdominal wall was removed and an 8-mm da Sugey port was placed at this location. The third robotic arm was then attached to this additional da Sugey port. A ProGrasp forceps was placed through this port. Next, I proceeded back to the console. With the additional robotic arm as well as additional port with the fan retractor, now one could see the infundibulum of the gallbladder. Dissection was begun high upon the infundibulum of the gallbladder with electrocautery. Next, utilizing the da Sugey suction tip catheter, majority of the dissection was carried out upon the infundibulum of the gallbladder with the suction tip catheter. Posterior aspect of the infundibulum was freed from the underlying liver bed fossa. Dissection was continued until the only remaining structures coming forth from the infundibulum of the gallbladder were that of the cystic duct and cystic artery. Firefly biliary imaging was performed during the process of dissection. The cystic duct did not fluoresce. The gallbladder did not fluoresce. I did feel comfortable with the biliary anatomy. Nonetheless, given the difficulty of the procedure, I did ask one of my surgical partners to come into the operative suite to confirm with me in regard to the biliary anatomy. Dr. Valdez did present to the room and agreed that the critical view of safety had been obtained and the only remaining structures coming forth from the infundibulum of the gallbladder were that of cystic duct and cystic artery. A single Hem-o-neo clip was then placed upon the infundibulum of the gallbladder adjacent to the cystic duct. An additional Hem-o-neo clip was placed proximally. Additionally, a Hem-o-neo clip was placed upon the cystic artery upon the infundibulum of the gallbladder and additional Hem-o-neo clip was just placed proximally. The cystic artery and cystic duct were then divided between the two Hem-o-neo clips. Gallbladder was then dissected off of the liver bed fossa bluntly as well as with use of electrocautery. Dissection was somewhat difficult as a result of the inflammatory changes that were present. Eventually the gallbladder was able to be completely dissected away from the gallbladder fossa. A rent was created within the gallbladder during the process of dissection. This was considered to be inherent to the risk of the procedure given the gangrenous changes of the gallbladder. A few small stones were spilled which were a bili easily suctioned and removed from the peritoneal cavity. Next, the gallbladder and a large stone that was within it was placed within the laparoscopic retrieval bag. An 18-Italian NINO drain was then placed through the 12 mm port within the left midabdomen and the drain was allowed to exit through the port site along the right abdominal wall. Drain was placed in a subhepatic location adjacent to the gallbladder fossa. Additional irrigation was performed and all irrigant was suctioned until clear. Gallbladder fossa was inspected and found to be completely hemostatic in nature. Previously placed Hem-o-neo clips were visualized and remained to be intact. Next, the ports were removed under direct visualization. The gallbladder and a larger stone that was placed within the laparoscopic retrieval bag were removed from the infraumbilical port site. Lastly, the remaining ports were removed under direct visualization. Pneumoperitoneum was then released. Previously placed U-stitch at the infraumbilical port was then tied resulting in imbrication of the fascia. All skin incisions were then closed in a subcuticular fashion with 4-0 Monocryl. Dermabond was placed overlying the incisions. A drain was secured to the right lateral abdominal wall with 2-0 Prolene. The patient is in the process of awakening from his anesthetic and will be sent back to the recovery room once deemed in stable condition. Additionally, it should be noted that Joseph Schaffer APRN, was present throughout the entire case and played a pivotal role in providing assistance and exposure during the course of the procedure. MEGA
[2017-10-11] MEDS: NS 1,000 ML IV SCH ×2 (01:57→11:41)
[2017-10-11] MEDS ORDERED: SENNA LIQUID (X-PREP) 74 ML PO ONE (08:05)
--- NOTE | 2017-10-11 08:30 | General Surgery Progress Note ---
Subjective Patient reports: feels better (abd pain from yesterday has subsided, walked and sat in the recliner yesterday.), tolerating a regular diet, voiding w/o difficulty, flatus, no bowel movement (now going on 6 days no BM. dulcolax 20 mg yesterday, will give X-Prep today) Narrative: Denies chest pain. Complains mostly of left inguinal hernia pain and no BM for going on 6 days, will get a KUB Also unhappy with frequent ICU interruptions, discussed ICU protocol to keep a close eye on patients. Discussed PCP options, he would like to stay in [place] but does not want the monthly fee of [facility] care model. He does not want someone who will be aggressive with medical procedures, I informed him that there are not very many docs still taking new patients, we will see who is available. - Vital Signs Last Vital Signs Temp 98.7 F 10/11/17 04:00 Pulse 74 10/11/17 07:54 Resp 22 10/11/17 06:00 BP 140/73 H 10/11/17 06:00 Pulse Ox 97 10/11/17 06:00 - Laboratory Result Diagrams: 10/11/17 04:16 10/11/17 04:16 - Microbiogy Microbiology 10/10/17 17:52 Urine, Voided (Cc/notcc) Urine Culture - Preliminary Culture Initiated - Results Pending - Abnormal Exam Abdominal: obese, tender (left inguinal hernia) - Normal Exam Respiratory: no labored breathing, other (room air on c-pap for night) Abdominal: BS normo active x4, soft, appropriately tender (trocar sites), incision(s) (CDI, NINO with nearly clear yellow fluid.) Male: other (large left inguinal hernia) Psychiatric: normal affect (although still has not called his daughter and makes comment that he might see a doctor only one more time, ) Assessment and Plan (1) Cholelithiasis with acute cholecystitis Current Visit: Yes Status: Acute Qualifiers: Cholelithiasis location: gallbladder (2) Hyperbilirubinemia Current Visit: Yes Status: Acute (3) Morbid obesity with BMI of 45.0-49.9, adult Current Visit: Yes Status: Chronic (4) Hypoxia Current Visit: Yes Status: Acute (5) Acute onset sepsis Current Visit: Yes Status: Acute (6) Sleep apnea in adult Current Visit: Yes Status: Chronic (7) Frequent PVCs Current Visit: Yes Status: Acute (8) Obstipation Current Visit: Yes Status: Acute Plan: Eating regular diet and passed a little flatus but no BM now going on 6 days, only flatus after Dulcolax PO yesterday, will give X-Prep today and KUB upright. Visited with Dr. Roger, we will transfer to surgical floor with telemetry, and all current orders. Looking for a suitable PCP for Mr. Sequeira. Appreciate Dr. Perez managing his cardiac care. Gaby Melara APRN has accepted him as PCP, appointment made for October 18 as a new patient. Continue IV ABX while in the hospital, might transition to PO depending on date of discharge. ADDENDUM: He had a large BM just before the KUB. Will DC to home today with Home Health for post op monitoring and drain management. Augmentin BID for 1 week. Drain removal October 17 in [facility]'s office. October 26 appointment with [facility] for evaluation of inguinal hernia and post op. New patient appointment with Gaby Melara APRN October 18. Hospital Course Summary Disclaimer: The visit summary below is not to be considered part of the above Progress Note. Hospital Course: 10/10 POD #1 surgery note WBC down just a little today to 18.4 from almost 20 yesterday. Troponin still <0.012 and he is in RSR now. Denies cheat pain. Bilirubin 1.9, up from 1.8 yesterday, but not uncommon for elevation after lap mars. He did have a very large stone plus multiple small stones. Sepsis, Invanz started in ED and 1 dose of Vacomycin given by hospitalist last night, he remains on Invanz daily. Nursing report foul urine, U/A ordered. No BM for 5 days, will start with Dulcolax PO to encourage bowels. Appreciate hospitalist for medical management and cardiology for cardiac care. This gentleman has not seen a physician for many years. Dr. Hernández was his last PCP seen, but pt did not know [facility] had moved to his "new" building. Will need to see if he wants to remain with [facility] with the new care model or choose a different PCP. Cardiology - no PVCs seen on telemetry now - 2D echo pending - Will likely need OP Adenosine stress test and further evaluate for CAD 10/11/2017 POD #2 Eating regular diet and passed a little flatus but no BM now going on 6 days, only flatus after Dulcolax PO yesterday, will give X-Prep today and KUB upright. Visited with Dr. Roger, we will transfer to surgical floor with telemetry, and all current orders. Looking for a suitable PCP for Mr. Sequeira. Appreciate Dr. Perez managing his cardiac care. Gaby Melara APRN has accepted him as PCP, appointment made for October 18 as a new patient. Continue IV ABX while in the hospital, might transition to PO depending on date of discharge. ADDENDUM: He had a large BM just before the KUB. Will DC to home today with Home Health for post op monitoring and drain management. Augmentin BID for 1 week. Drain removal October 17 in [facility] office. October 26 appointment with [facility] for evaluation of inguinal hernia and post op. New patient appointment with Gaby Melara APRN October 18. /PLan:10/11 Hospitalist: Appreciate consult and opportunity to care for Mr Sequeira Replace potassium Patient will resume CPAP at home Patient will f/u with cardiology He is unlikley to ask for help at home. Home health will be set up. d/w Joseph Schaffer APRN. Agree with abx change to Augmentin Patient has a f/u with Dr. Kumar next week. Arrangements have been made for a new PCP.
[2017-10-11 09:01] VITALS: TEMP 98.9
[2017-10-11] MEDS: ENOXAPARIN 40 MG/0.4 ML INJECTION SQ SCH (09:08)
[2017-10-11] MEDS: PANTOPRAZOLE 40 MG INJECTION IVP SCH (09:08)
[2017-10-11] MEDS: CETIRIZINE 10 MG TABLET PO SCH (09:08)
[2017-10-11 10:30] VITALS: O2SAT 96
[2017-10-11 10:49] VITALS: BP 140/74; PULSE 82; RESP 25
[2017-10-11] MEDS: ERTAPENEM 1 G in NS 100 ML IV SCH (13:19)
--- NOTE | 2017-10-11 13:20 | Progress Note ---
- Date 10/11/17 Subjective: Patient reports large stool. Says he is ready to go home. Says he will not let family know he has been in the hospital or ask for help. He is agreeable to home health and says he always uses his CPAP because he can't sleep with out it. He is ambulating in his room on room air. He c/o of pain near drain site. Objective Vital signs: Temperature 98.9 F 10/11/17 08:00 Pulse Rate 82 10/11/17 10:00 Respiratory Rate 25 H 10/11/17 10:00 Blood Pressure 140/74 H 10/11/17 10:00 Pulse Oximetry 96 10/11/17 10:28 Height/Weight/BMI: Weight 159.4 kg - Constitutional Present: no acute distress - Routine HEENT Exam Head: Present: normocephalic, atraumatic Eye: Present: EOMI, PERRL ENT: Present: mucous membranes moist - Routine Respiratory Exam Present: CTA bilaterally - Routine Cardiovascular Exam Present: RRR, S1, S2 - Routine Abdominal Exam Present: tenderness (at incision sites) - Routine Extremities Exam Present: no edema - Routine Neurological Exam Present: alert, oriented X3, CN II-XII intact - Routine Psychiatric Exam Present: normal affect, cooperative Results - Labs CBC & Chem 7: 10/11/17 04:16 10/11/17 04:16 Microbiology Results: Microbiology 10/10/17 17:52 Urine, Voided (Cc/notcc) Urine Culture - Preliminary Culture Initiated - Results Pending Assessment and Plan Assessment and Plan: Assessment 1) Acute cholecystitis s/p Cholecystectomy 2) Acute Hypoxic Respiratory Failure in ICU on BIPAP 3) Acute Sepsis 4) MARIO normally in CPAP at home 5) GERD 6) Telemetry showing frequent PVCs 7) Chronic back pain 8) Hypokalemia PLan: Appreciate consult and opportunity to care for Mr Sequeira Replace potassium Patient will resume CPAP at home Patient will f/u with cardiology He is unlikley to ask for help at home. Home health will be set up. d/w Joseph Schaffer APRN. Agree with abx change to Augmentin Patient has a f/u with Dr. Kumar next week. Arrangements have been made for a new PCP. - Physician Narrative Narrative: Date: 10/11/17 Time: 1316 Hospital Course Summary Disclaimer: The visit summary below is not to be considered part of the above Progress Note. Hospital Course: 10/10 POD #1 surgery note WBC down just a little today to 18.4 from almost 20 yesterday. Troponin still <0.012 and he is in RSR now. Denies cheat pain. Bilirubin 1.9, up from 1.8 yesterday, but not uncommon for elevation after lap mars. He did have a very large stone plus multiple small stones. Sepsis, Invanz started in ED and 1 dose of Vacomycin given by hospitalist last night, he remains on Invanz daily. Nursing report foul urine, U/A ordered. No BM for 5 days, will start with Dulcolax PO to encourage bowels. Appreciate hospitalist for medical management and cardiology for cardiac care. This gentleman has not seen a physician for many years. Dr. Hernández was his last PCP seen, but pt did not know [facility] had moved to his "new" building. Will need to see if he wants to remain with [facility] with the new care model or choose a different PCP. Cardiology - no PVCs seen on telemetry now - 2D echo pending - Will likely need OP Adenosine stress test and further evaluate for CAD 10/11/2017 POD #2 Eating regular diet and passed a little flatus but no BM now going on 6 days, only flatus after Dulcolax PO yesterday, will give X-Prep today. Visited with Dr. Roger, we will transfer to surgical floor with telemetry, and all current orders. Looking for a suitable PCP for Mr. Sequeira. Appreciate Dr. Perez managing his cardiac care. Continue IV ABX while in the hospital, might transition to PO depending on date of discharge.
--- NOTE | 2017-10-11 13:58 | XRay Report ---
Indication: obstipation, abd pain PROCEDURE: XR abdomen 2V: Encounter: Initial Comparison: None Findings: No gross free intraperitoneal air identified. Surgical drain in the right upper quadrant of the abdomen. Evidence of a generalized ileus with diffuse dilatation of small and large bowel throughout the abdomen with a couple nondifferential air-fluid levels. Decreased distal gas with moderate colonic stool. Impression: Postoperative ileus. .
--- NOTE | 2017-10-11 14:09 | Discharge Summary ---
Discharge Information Date of admission: 10/09/17 20:26 Anticipated date of discharge: 10/11/17 Attending Physician: Jerrell Kumar MD Primary care physician: Jerel Hernández DO Consults: 10/09/17 20:57 Physician Consult [CONS] Routine Consulting Provider: Jerel Jones Reason For Exam: medical management Ordering Provider has Notified Staff Nurse Midwife: No Comment: RN to notify 10/09/17 21:13 Physician Consult [CONS] Routine Consulting Provider: Jasmeet Perez Reason For Exam: frequent PVCs Ordering Provider has Notified Staff Nurse Midwife: No Comment: RN to notify - Discharge Diagnosis (1) Cholelithiasis with acute cholecystitis Status: Acute (2) Hyperbilirubinemia Status: Acute (3) Morbid obesity with BMI of 45.0-49.9, adult Status: Chronic (4) Hypoxia Status: Acute (5) Acute onset sepsis Status: Acute (6) Sleep apnea in adult Status: Chronic (7) Frequent PVCs Status: Acute (8) Obstipation Status: Acute - Procedures Procedures: DATE OF PROCEDURE 10/09/2017 SURGEON Jerrell Kumar MD POACHER WRINGER OPERATOR Joseph Schaffer APRN PREOPERATIVE DIAGNOSIS Acute cholecystitis. POSTOPERATIVE DIAGNOSIS Acute cholecystitis. PROCEDURE Robotic-assisted laparoscopic cholecystectomy with use of Firefly biliary imaging. - Laboratory Labs: 10/11/17 04:16 10/11/17 04:16 Laboratory Tests 10/09/17 10/09/17 10/09/17 09:39 09:39 09:39 WBC 19.7 H Hemoglobin A1c Total Bilirubin 1.80 H NT-Pro-B Natriuret Pep 1950 H 10/10/17 10/10/17 10/11/17 02:41 02:41 04:16 WBC 18.4 H 9.5 D Hemoglobin A1c 5.6 Total Bilirubin 1.90 H NT-Pro-B Natriuret Pep 10/11/17 04:16 WBC Hemoglobin A1c Total Bilirubin 0.80 NT-Pro-B Natriuret Pep - Microbiology Microbiology 10/10/17 17:52 Urine, Voided (Cc/notcc) Urine Culture - Preliminary Culture Initiated - Results Pending - Radiology Radiology: GB sono The gallbladder is distended with a 1.9 cm gallstone fixed in the neck. Additional smaller stones also present. There is gallbladder wall edema and thickening up to 7 mm in thickness. Sonographic Roche's sign was reportedly positive. No intrahepatic bile duct dilatation. The common duct was unable to be visualized. Pancreas is not seen. The right kidney is present without collecting system dilatation. The right kidney measures 13.2 cm in length. Impression: 1. Acute cholecystitis. Surgical consultation is recommended. 2. Hepatic steatosis. 10/[address]-A Impression: 1. No pulmonary embolus. No pneumonia or pericardial effusion. 2. Probable acute cholecystitis. Recommend gallbladder ultrasound for further evaluation. 10/09 CXR IMPRESSION: Linear lower lobe markings could represent atelectasis, scarring or early infiltrate. Mild enlargement of the cardiac silhouette could be due to cardiomegaly or pericardial effusion. 10/11 KUB upright Findings: No gross free intraperitoneal air identified. Surgical drain in the right upper quadrant of the abdomen. Evidence of a generalized ileus with diffuse dilatation of small and large bowel throughout the abdomen with a couple nondifferential air-fluid levels. Decreased distal gas with moderate colonic stool. Impression: Postoperative ileus. 10/10 EKG 2-D echo report pending. EKG interpretations - EKG EKG results cardiology: sinus rhythm - Dysrhythmias Ventricular dysrhythmias: ventricular premature complexes - Blocks, axis, hypertrophy, ST abn Repolarization changes or abnormalities: nonspecific abnormality, ST segment, and/or T wave - History of Present Illness Chief complaint: chest pain and abdominal pain HPI: BRIEF HISTORY/INDICATIONS Mr. Sequeira is a 76-year-old gentleman who presented to our ER facility earlier today with some vague symptomatology. During the process of evaluation, radiographically he was found to have evidence for cholecystitis and a consult was put forth to me. Upon physical examination the patient was found to be exquisitely tender within his right upper quadrant. He did have a positive Roche's sign. His symptoms were somewhat unusual for a typical presentation of gallbladder disease. His CT scan as well as his gallbladder ultrasound revealed evidence for acute cholecystitis. As a result of the above indications , it was recommended to the patient that he undergo surgical intervention Hospital Course This is a general summary of the patient's hospital course. For more details refer to the complete medical record. Hospital course: 10/09 post op Hospitalist consult: Assessment 1) Acute cholecystitis s/p Cholecystectomy 2) Acute Hypoxic Respiratory Failure in ICU on BIPAP 3) Acute Sepsis 4) MARIO normally in CPAP at home 5) GERD 6) Telemetry showing frequent PVCs 7) Chronic back pain PLan: Appreciate consult and opportunity to care for Mr Sequeira Telemetry Serial troponins Cardiology consult - given 12.5mg po Metoprolol x one BIPAP - wean as tolerated to NC RT consult w/ nebs q 4 hours prn and ISP as tolerated IVFs that of NS at 125 cc / hour Labs in AM Protonix 40mg daily - start IV and move to po Vancomycin 1g IV x one, then reassess tomorrow for continued need Order lactate tonight and in AM 10/10 POD #1 surgery note WBC down just a little today to 18.4 from almost 20 yesterday. Troponin still <0.012 and he is in RSR now. Denies cheat pain. Bilirubin 1.9, up from 1.8 yesterday, but not uncommon for elevation after lap mars. He did have a very large stone plus multiple small stones. Sepsis, Invanz started in ED and 1 dose of Vacomycin given by hospitalist last night, he remains on Invanz daily. Nursing report foul urine, U/A ordered. No BM for 5 days, will start with Dulcolax PO to encourage bowels. Appreciate hospitalist for medical management and cardiology for cardiac care. This gentleman has not seen a physician for many years. Dr. Hernández was his last PCP seen, but pt did not know [facility] had moved to his "new" building. Will need to see if he wants to remain with [facility] with the new care model or choose a different PCP. Cardiology consult: Cardiology - no PVCs seen on telemetry now - 2D echo pending - Will likely need OP Adenosine stress test and further evaluate for CAD 10/11/2017 POD #2 Eating regular diet and passed a little flatus but no BM now going on 6 days, only flatus after Dulcolax PO yesterday, will give X-Prep today and KUB upright. Visited with Dr. Roger, we will transfer to surgical floor with telemetry, and all current orders. Looking for a suitable PCP for Mr. Sequeira. Appreciate Dr. Perez managing his cardiac care. Gaby Melara APRN has accepted him as PCP, appointment made for October 18 as a new patient. Continue IV ABX while in the hospital, might transition to PO depending on date of discharge. ADDENDUM: He had a large BM just before the KUB. Will DC to home today with Home Health for post op monitoring and drain management. Augmentin BID for 1 week. Drain removal October 17 in José's office. October 26 appointment with José for evaluation of inguinal hernia and post op. New patient appointment with Gaby Melara APRN October 18. /PLan:10/11 Hospitalist: Appreciate consult and opportunity to care for Mr Sequeira Replace potassium Patient will resume CPAP at home Patient will f/u with cardiology 2 weeks He is unlikley to ask for help at home. Home health will be set up. d/w Joseph Schaffer APRN. Agree with abx change to Augmentin Patient has a f/u with Dr. Kumar next week. Arrangements have been made for a new PCP. Time spent with patient: 25 - 35 minutes Resuscitation Status: Full Code Discharge Plan - Med Rec/Dispo Referrals/Follow Up: Jasmeet Perez MD [Physician] - 11/01/17 10:50 am Jerrell Kumar MD [Physician] - 10/26/17 10:00 am (Inguinal hernia exam. [facility]nd [facility], [address] [place] [address] ) Carol Schaffer APRN [Advanced Practice Nurse] - 10/17/17 10:00 am (With office nurse Brigid or Savannah to remove drain. 2nd [facility] the [facility], [address] [place] [address] ) Gaby Melara APRN [Advanced Practice Nurse] - 10/18/17 9:30 am (New patient, get aquainted, and post hospital visit. In the [facility], [address] Prescriptions: New PEG 3350 17gm PACKET [Miralax] 17 gm PO DAILY #10 packet Hydrocodone/APAP 5/325 [[place] 5/325] 1 - 2 tab PO Q5H PRN #25 tab PRN Reason: Pain Amoxicillin/Potassium Clav [Amox-Clav 875-125 mg Tablet] 875 mg PO Q12HR #14 tab Continue Cetirizine HCl [Zyrtec] 1 tab PO DAILY Aspirin 2 tab PO PRN PRN PRN Reason: Pain - Disposition [facility] - Dismissal Complete Discharge Instructions are:: Complete
--- NOTE | 2017-10-11 15:23 | Progress Note ---
DATE 10/11/2017 FINDINGS Mr. Sequeira was seen this afternoon on rounds. He states he did have a large bowel movement. He states that he is feeling significantly better. OBJECTIVE VITALS: Afebrile. Normotensive. Please refer to EMR. ABDOMEN: Soft. Minimal incisional tenderness. Incisions clean, dry and intact. NINO drainage is minimal and serosanguineous in nature/nonbilious. LABORATORY/RADIOGRAPHIC EVALUATION The patient's white count is now down from 19,000 on admission to 9000. CMP was obtained today and his total bilirubin is down to 0.8. AST, ALT, alkaline phosphatase essentially within normal limits. I do see that a UA was obtained yesterday and a culture and reflex was set up. The results of culture are pending. ASSESSMENT 76-year-old gentleman status post robotic assisted laparoscopic cholecystectomy secondary to gangrenous/acute cholecystitis. Patient doing well from a surgical standpoint. PLAN Once the patient has been deemed stable from a medical standpoint, I do believe he could be discharged to home. I would discharge to home on additional oral antibiotics. Will plan on sending him home on Augmentin 875 mg one p.o. b.i.d. over the course of the next 5-7 days. Will have the patient follow up with my nurse next week during my absence for removal of his NINO drain. Overall I am pleased with the patient's progress at this time. MEGA
--- NOTE | 2017-10-11 15:45 | Echocardiogram ---
DATE OF PROCEDURE October 11, 2017 This is a two-dimensional echo with spectral Doppler, color-flow and M-mode. It was obtained in a patient with PVCs. Left atrium is dilated. Left ventricle end-diastolic dimension is mildly increased. LV systolic function is normal with ejection fraction of about 61%. Left ventricular wall thickness is increased. Right atrium is dilated. Right ventricle is normal. Aortic root dimension is normal. Mitral valve is morphologically normal with mild mitral regurgitation. Aortic valve shows fibrocalcific changes with no stenosis or insufficiency. Tricuspid valve shows mild tricuspid regurgitation with normal estimated pulmonary artery systolic pressure of 25. Pulmonary valve shows no pulmonary insufficiency. There is no pericardial effusion. IMPRESSION 1. Biatrial dilation. 2. Mild left ventricular dilation. 3. Normal LV systolic function with ejection fraction of 61%. 4. Left ventricular hypertrophy. 5. Mild mitral regurgitation. 6. Aortic sclerosis. 7. Mild tricuspid regurgitation with normal estimated pulmonary artery systolic pressure of 25. MTDD
[2017-10-11] MEDS ORDERED: AMOX/CLAV 875 MG/125 MG TABLET PO SCH (21:00)
== END 2017-10-11 15:00 | disposition home health service (06) | DRG 853 ==
LOC: ED 09:20 → EDHOLD 09:20 → SRG 13:38 → CCU 20:06 → SRG 10-11 10:49
PROVIDERS: ADMIT Surgery; ATTEND Surgery